=== PATIENT | male | born 1985 | race Two or more races ===

== ENCOUNTER 2019-05-17 10:01 | Emergency (ER) | payer OTHER ==
[~2019-05-17] VITALS: Ht 175.3 cm; Wt 61.2 kg
== END 2019-05-17 14:28 | disposition home or self-care (01) ==
LOC: ER 10:01
DX: R10.31 Right lower quadrant pain (principal)

== ENCOUNTER 2019-10-19 13:07 | Outpatient (CLI) | payer OTHER | END 2019-10-19 13:18 | disposition home or self-care (01) | LOC: RAD 13:07 | PROVIDERS: ATTEND General Practice | DX: M25.562 Pain in left knee (principal); M25.561 Pain in right knee; M25.552 Pain in left hip; M25.551 Pain in right hip ==

== ENCOUNTER → 2019-11-16 | Outpatient (CLI) | payer OTHER | END | disposition home or self-care (01) | LOC: MRI 13:15 | PROVIDERS: ATTEND Orthopaedic Surgery | DX: M25.551 Pain in right hip (principal); M25.552 Pain in left hip; M25.561 Pain in right knee; M25.562 Pain in left knee | CPT/HCPCS: 73721 ==